=== PATIENT | male | born 1975 | race African-American/Black ===

== ENCOUNTER 2019-09-18 12:45 | Emergency (ER) | payer MEDICAID ==
[~2019-09-18] VITALS: Ht 177.8 cm; Wt 79.4 kg
[2019-09-18 12:45] VITALS: BP_SYST 147
--- NOTE | 2019-09-18 12:54 | NUR ---
Patient triaged and placed in waiting room. VSS and patient appears in no acute distress at this time. Awaiting available bed, and MD notified of need for MSE.
--- NOTE | 2019-09-18 17:08 | NUR ---
Patient left without being seen.
== END 2019-09-18 17:08 | disposition left against medical advice (07) ==
LOC: SED 12:45
DX: R42 Dizziness and giddiness (principal); R20.0 Anesthesia of skin; Z53.21 Procedure and treatment not carried out due to patient leaving prior to being seen by health care provider